=== PATIENT | male | born 1955 | race Caucasian/White ===

== ENCOUNTER 2018-09-05 15:54 | Inpatient (IN) | payer OTHER ==
[~2018-09-05] VITALS: Ht 185.4 cm; Wt 89.1 kg
[2018-09-05 17:45] LABS: BASOPHILS # (AUTO) 0.03 x10^3/uL (0-0.1); BASOPHILS % (AUTO) 0 % (0-1); EOSINOPHILS # (AUTO) 0.21 x10^3/uL (0-0.4); EOSINOPHILS % (AUTO) 2 % (1-7); LYMPHOCYTES # (AUTO) 1.58 x10^3/uL (1-3.4); LYMPHOCYTES % (AUTO) 17 % (22-44); MD NO; MEAN CORPUSCULAR HEMOGLOBIN 27.7 pg (27.5-34.5); MEAN CORPUSCULAR HGB CONC 32.3 g/dL (33.2-36.2); MEAN CORPUSCULAR VOLUME 85.8 fL (81-97); MEAN PLATELET VOLUME 8.9 fL (7.4-10.4); MONOCYTES % (AUTO) 13 % (2-9); NEUTROPHILS # (AUTO) 6.21 x10^3/uL (1.8-6.8); NEUTROPHILS % (AUTO) 67 % (42-75); PLATELET COUNT 269 x10^3/uL (130-400); RED BLOOD COUNT 4.38 x10^6/uL (4.38-5.82); RED CELL DISTRIBUTION WIDTH 14.8 % (9.4-14.8)
[2018-09-05 17:52] LABS: ALANINE AMINOTRANSFERASE 29 U/L (12-78); ALBUMIN 3.4 g/dL (3.4-5.0); ANION GAP 6 mmol/L (5-15); CALCIUM 8.4 mg/dL (8.5-10.1); CHLORIDE 103 mmol/L (98-107); CREATININE 0.76 mg/dL (0.7-1.3); SALICYLATE LEVEL 4.4 mg/dL (2.8-20.0)
[2018-09-05 17:54] LABS: ALKALINE PHOSPHATASE 76 U/L (45-117); BILIRUBIN,TOTAL 0.5 mg/dL (0.2-1.0); TOTAL PROTEIN 6.7 g/dL (6.4-8.2)
[2018-09-05 17:55] LABS: ACETAMINOPHEN < 2 mcg/mL (10-30)
[2018-09-05] MEDS ORDERED: NALOXONE 1 MG/ML, 2ML ONE (18:21)
[2018-09-05] MEDS ORDERED: NALOXONE 1 MG/ML, 2ML IVPush ONE (18:30)
[2018-09-05] MEDS ORDERED: LORazepam 2 MG/ML, 1ML ONE ×2 (18:40→18:50)
[2018-09-05] MEDS ORDERED: MORPHINE SULFATE 4 MG/ML, 1ML IVPush PRN (19:00)
[2018-09-05] MEDS ORDERED: LORazepam 2 MG/ML, 1ML IVPush ONE ×3 (19:00)
[2018-09-05] MEDS ORDERED: MORPHINE SULFATE 4 MG/ML, 1ML ONE (19:20)
[2018-09-05] MEDS ORDERED: ZIPRASIDONE 20 MG INJ IM ONE ×2 (19:44→20:00)
[2018-09-05] MEDS ORDERED: SODIUM CHLORIDE FLUSH 10ML SYR IVF PRN (20:30)
[2018-09-05] MEDS ORDERED: PROPOFOL 100 ML IV PRN (20:38)
[2018-09-05] MEDS ORDERED: PROPOFOL 100 ML IV ONE (20:39)
[2018-09-05] MEDS ORDERED: SUCCINYLCHOLINE 20 MG/ML, 10ML IVPush ONE (21:00)
[2018-09-05] MEDS ORDERED: ETOMIDATE 20 MG/10 ML ONE (21:00)
[2018-09-05] MEDS ORDERED: SUCCINYLCHOLINE 20 MG/ML, 10ML ONE (21:00)
[2018-09-05] MEDS ORDERED: MIDAZOLAM 1 MG/ML, 5ML ONE (21:00)
[2018-09-05] MEDS ORDERED: ETOMIDATE 20 MG/10 ML IV ONE (21:00)
[2018-09-05] MEDS ORDERED: MIDAZOLAM 1 MG/ML, 2ML IVPush ONE (21:30)
[2018-09-05] MEDS ORDERED: LIDOCAINE-MPF 1%, 2ML ENDO PRN (22:00)
[2018-09-05] MEDS ORDERED: PHARMACY MAY ADJ FOR RENAL FX MC SCH (22:00)
[2018-09-05] MEDS ORDERED: ACETAMINOPHEN 650 MG/20.3 ML UDC NG PRN (22:00)
[2018-09-05 22:18] LABS: AMPHETAMINE SCREEN, URINE Negative (Negative); BARBITURATE SCREEN, URINE Negative (Negative); BENZODIAZEPINE SCREEN, URINE Negative (Negative); CANNABINOID SCREEN, URINE Negative (Negative); COCAINE SCREEN, URINE Negative (Negative); METHADONE SCREEN, URINE Negative (Negative); OPIATE SCREEN, URINE Positive (Negative)
[2018-09-05 22:19] VITALS: BP 119/72
[2018-09-05] MEDS ORDERED: PROMETHAZINE 25 MG/ML, 1ML IM PRN (22:30)
[2018-09-05] MEDS ORDERED: hydrALAzine 20 MG/ML, 1ML IVPush PRN (22:30)
[2018-09-05] MEDS ORDERED: DOCUSATE 100 MG CAPSULE PO PRN (22:30)
[2018-09-05] MEDS ORDERED: ACETAMINOPHEN 325 MG TABLET PO PRN (22:30)
[2018-09-05] MEDS ORDERED: ONDANSETRON 2MG/ML, 2ML IVPush PRN (22:30)
[2018-09-05] MEDS ORDERED: ONDANSETRON ODT 4 MG PO PRN (22:30)
[2018-09-05] MEDS ORDERED: LABETALOL 5MG/ML, 20ML IVPush PRN (22:30)
[2018-09-05] MEDS ORDERED: POLYETHYLENE GLYCOL 17 GM PACKET PO PRN (22:30)
[2018-09-05] MEDS ORDERED: BISACODYL 10 MG SUPP PR PRN (22:30)
[2018-09-05] MEDS: SODIUM CHLORIDE 0.9% 1,000 ML IV SCH (22:47)
[2018-09-05] MEDS: FAMOTIDINE 20 MG/2 ML IV SCH (22:48)
[2018-09-05] MEDS: HEPARIN 5,000 UNITS/ML, 1ML SQ SCH (22:48)
[2018-09-06 00:05] VITALS: BP 119/72
[2018-09-06 03:59] LABS: MICROSCOPIC NOT IND
[2018-09-06 04:00] VITALS: BP 138/78
[2018-09-06 04:18] LABS: CULTURE INDICATED? NO
[2018-09-06 04:37] LABS: BASOPHILS # (AUTO) 0.02 x10^3/uL (0-0.1); BASOPHILS % (AUTO) 0 % (0-1); EOSINOPHILS # (AUTO) 0.09 x10^3/uL (0-0.4); EOSINOPHILS % (AUTO) 1 % (1-7); LYMPHOCYTES # (AUTO) 1.75 x10^3/uL (1-3.4); LYMPHOCYTES % (AUTO) 30 % (22-44); MD NO; MEAN CORPUSCULAR HEMOGLOBIN 28.4 pg (27.5-34.5); MEAN CORPUSCULAR HGB CONC 33.6 g/dL (33.2-36.2); MEAN CORPUSCULAR VOLUME 84.8 fL (81-97); MEAN PLATELET VOLUME 8.8 fL (7.4-10.4); MONOCYTES # (AUTO) 0.66 x10^3/uL (0.2-0.8); MONOCYTES % (AUTO) 11 % (2-9); NEUTROPHILS % (AUTO) 58 % (42-75); PLATELET COUNT 245 x10^3/uL (130-400); RED BLOOD COUNT 4.13 x10^6/uL (4.38-5.82); RED CELL DISTRIBUTION WIDTH 14.7 % (9.4-14.8)
[2018-09-06 04:46] LABS: ANION GAP 9 mmol/L (5-15); CHLORIDE 108 mmol/L (98-107); CREATININE 0.69 mg/dL (0.7-1.3)
[2018-09-06] MEDS: PROPOFOL 100 ML IV PRN ×2 (05:12→12:01)
[2018-09-06] MEDS: HEPARIN 5,000 UNITS/ML, 1ML SQ SCH ×3 (06:33→22:39)
[2018-09-06] MEDS: SODIUM CHLORIDE 0.9% 1,000 ML IV SCH (07:57)
[2018-09-06] MEDS: FAMOTIDINE 20 MG/2 ML IV SCH ×2 (12:04→22:39)
[2018-09-07] MEDS: OXYcodone/APAP 10/325MG TABLET PO PRN ×2 (03:09→08:51)
[2018-09-07 04:00] VITALS: BP 143/76
[2018-09-07 04:33] LABS: BASOPHILS # (AUTO) 0.02 x10^3/uL (0-0.1); BASOPHILS % (AUTO) 0 % (0-1); CHLORIDE 107 mmol/L (98-107); EOSINOPHILS # (AUTO) 0.04 x10^3/uL (0-0.4); EOSINOPHILS % (AUTO) 1 % (1-7); LYMPHOCYTES # (AUTO) 1.39 x10^3/uL (1-3.4); LYMPHOCYTES % (AUTO) 18 % (22-44); MD NO; MEAN CORPUSCULAR HEMOGLOBIN 27.7 pg (27.5-34.5); MEAN CORPUSCULAR HGB CONC 32.5 g/dL (33.2-36.2); MEAN CORPUSCULAR VOLUME 85.3 fL (81-97); MEAN PLATELET VOLUME 9.1 fL (7.4-10.4); MONOCYTES # (AUTO) 0.98 x10^3/uL (0.2-0.8); MONOCYTES % (AUTO) 13 % (2-9); NEUTROPHILS # (AUTO) 5.33 x10^3/uL (1.8-6.8); NEUTROPHILS % (AUTO) 69 % (42-75); PLATELET COUNT 221 x10^3/uL (130-400); RED BLOOD COUNT 4.34 x10^6/uL (4.38-5.82); RED CELL DISTRIBUTION WIDTH 14.7 % (9.4-14.8)
[2018-09-07 04:34] LABS: ANION GAP 7 mmol/L (5-15); CALCIUM 8.2 mg/dL (8.5-10.1); CREATININE 0.63 mg/dL (0.7-1.3)
[2018-09-07] MEDS: HEPARIN 5,000 UNITS/ML, 1ML SQ SCH (08:00)
[2018-09-07] MEDS: FAMOTIDINE 20 MG/2 ML IV SCH (08:51)
[2018-09-07] MEDS ORDERED: AMOX1TAB12 PO (09:23)
[2018-09-07] MEDS ORDERED: AMOXICILLIN/CLAV 875-125MG TABLET PO SCH (09:30)
== END 2018-09-07 11:18 | disposition home or self-care (01) | DRG 917 ==
LOC: ED 21:58 → CCU 22:01
PROVIDERS: ADMIT Internal Medicine; ATTEND Internal Medicine
PROC: 0T9B70Z Drainage of Bladder with Drainage Device, Via Natural or Artificial Opening (ICD-10-PCS; principal; 2018-09-06)
PROC: 5A1935Z Respiratory Ventilation, Less than 24 Consecutive Hours (ICD-10-PCS; 2018-09-06)
PROC: 0BH17EZ Insertion of Endotracheal Airway into Trachea, Via Natural or Artificial Opening (ICD-10-PCS; 2018-09-06)
DX: T40.601A Poisoning by unspecified narcotics, accidental (unintentional), initial encounter (principal); J69.0 Pneumonitis due to inhalation of food and vomit; G92 Toxic encephalopathy; J96.01 Acute respiratory failure with hypoxia; Z99.11 Dependence on respirator [ventilator] status; D64.9 Anemia, unspecified; G47.30 Sleep apnea, unspecified; Z79.891 Long term (current) use of opiate analgesic; Y92.89 Other specified places as the place of occurrence of the external cause; Z78.1 Physical restraint status
CPT/HCPCS: 31500; 36415; 36600; 99291; J3490; 70450; 71045; 80048; 80053; 80307; 80329; 81003; 82140; 82803; 83735; 84478; 85025; 87070; 87077; 87081; 87186; 87205; 93005; 94002; 94003; 94150; 96372; 96374; 96375; G0378; J1644; J2250; J2704; J3486; G0480; J0330; J2060; J2310; J7030